=== PATIENT | female | born 1995 | race Caucasian/White ===

== ENCOUNTER 2016-11-04 16:28 | Emergency (ER) | payer OTHER ==
[2016-11-04] MEDS ORDERED: ACTIVATED CHARCOAL-SORBITOL 50 GM/240 ML BOTTLE PO STA (16:29)
[2016-11-04 16:34] VITALS: RESP 18
--- NOTE | 2016-11-04 16:37 | ED ---
General Adult HPI - General Chief complaint: Overdose Stated complaint: Overdose Time Seen by Provider: 11/04/16 16:30 Source: patient, EMS, RN notes reviewed Mode of arrival: EMS Limitations: no limitations - History of Present Illness Initial comments: This is a 20-year-old female presents to the emergency department somewhat lethargic. According to the patient she fell on the ice yesterday and hurt her hip so she was in pain so she took for her of her boyfriend's [place]. Patient does not know strength [place]. According to EMS emma called EMS because she was difficult to arouse. According to EMS when they arrived she was awake and alert a little bit groggy but was able to answer all questions accurately. Patient states she is not suicidal or homicidal she was just trying to the pain and does not have a good answer as to why she took for supposed to 1. Patient states she did no other drugs. Patient states she is a smoker. Patient denies any significant bronze currently. - Related Data Home Medications Medication Instructions Recorded Confirmed No Known Home Medications [No 11/04/16 11/04/16 Known Home Medications] Allergies Allergy/AdvReac Type Severity Reaction Status Date / Time No Known Allergies Allergy Verified 11/04/16 17:20 Review of Systems ROS Statement: Those systems with pertinent positive or pertinent negative responses have been documented in the HPI. ROS Other: All systems not noted in ROS Statement are negative. Past Medical History Additional Past Medical History / Comment(s): Gestational diabetes. History of Any Multi-Drug Resistant Organisms: None Reported Past Surgical History: No Surgical Hx Reported Past Anesthesia/Blood Transfusion Reactions: No Reported Reaction Past Psychological History: No Psychological Hx Reported Smoking Status: Current every day smoker Past Alcohol Use History: Occasional Past Drug Use History: None Reported Additional Drug Use History / Comment(s): pt refused smoking cessation info - Past Family History Mother Family Medical History: Asthma, COPD General Exam - General Exam Comments Initial Comments: GENERAL: Patient is well-developed and well-nourished. Patient is nontoxic and well- hydrated and is in no acute distress. Patient is a little lethargic but is able to answer all questions appropriately ENT: Neck is soft and supple. No significant lymphadenopathy is noted. Oropharynx is clear. Moist mucous membranes. Neck has full range of motion without eliciting any pain. EYES: The sclera were anicteric and conjunctiva were pink and moist. Extraocular movements were intact and pupils were equal round and reactive to light. Eyelids were unremarkable. PULMONARY: Unlabored respirations. Good breath sounds bilaterally. No audible rales rhonchi or wheezing was noted. CARDIOVASCULAR: There is a regular rate and rhythm without any murmurs gallops or rubs. ABDOMEN: Soft and nontender with normal bowel sounds. No palpable organomegaly was noted. There is no palpable pulsatile mass. SKIN: Skin is clear with no lesions or rashes and otherwise unremarkable. NEUROLOGIC: Patient is alert and oriented x3. Cranial nerves II through XII are grossly intact. Motor and sensory are also intact. Normal speech, volume and content. Symmetrical smile. MUSCULOSKELETAL: Normal extremities with adequate strength and full range of motion. LYMPHATICS: No significant lymphadenopathy is noted PSYCHIATRIC: Normal psychiatric evaluation. Limitations: no limitations Course Vital Signs 11/04/16 11/04/16 16:29 16:59 Temperature 98.3 F Pulse Rate 134 H 102 H Respiratory 18 18 Rate Blood Pressure 147/89 117/78 O2 Sat by Pulse 98 100 Oximetry Medical Decision Making - Medical Decision Making Patient is alert and oriented 3 and signs out AMA because she does not want to wait any longer. - Lab Data Lab Results 11/04/16 Range/Units 17:53 Urine Opiates Screen Detected H (NotDetected) Ur Oxycodone Screen Not Detected (NotDetected) Urine Methadone Screen Not Detected (NotDetected) Ur Propoxyphene Screen Not Detected (NotDetected) Ur Barbiturates Screen Not Detected (NotDetected) U Tricyclic Antidepress Not Detected (NotDetected) Ur Phencyclidine Scrn Not Detected (NotDetected) Ur Amphetamines Screen Not Detected (NotDetected) U Methamphetamines Scrn Not Detected (NotDetected) U Benzodiazepines Scrn Not Detected (NotDetected) Urine Cocaine Screen Detected H (NotDetected) U Marijuana (THC) Screen Not Detected (NotDetected) Disposition Clinical Impression: Opiate overdose Disposition: HOME SELF-CARE Condition: Good Instructions: Narcotic Abuse (ED) Time of Disposition: 18:44
[2016-11-04 18:50] VITALS: BP 115/82; PULSE 95; TEMP 97.5
== END 2016-11-04 18:55 | disposition home or self-care (01) ==
LOC: EC 16:28
DX: T40.2X1A Poisoning by other opioids, accidental (unintentional), initial encounter (principal); R53.83 Other fatigue; Z53.21 Procedure and treatment not carried out due to patient leaving prior to being seen by health care provider; F17.200 Nicotine dependence, unspecified, uncomplicated
CPT/HCPCS: 80306; 82075; 99284

== ENCOUNTER 2022-08-06 13:57 | Emergency (ER) | payer OTHER ==
[2022-08-06] MEDS ORDERED: IPRATROPIUM-ALBUTEROL 3 ML NEB INHALATION STA (14:15)
[2022-08-06] MEDS ORDERED: SODIUM CHLORIDE 0.9% 1,000 ML IV STA ×4 (14:15→15:37)
[2022-08-06 14:23] VITALS: TEMP 97.6
[2022-08-06 14:55] LABS: ALT 16 U/L (4-34); AST 26 U/L (14-36); African American GFR (CKD) >90 (>60 ml/min/1.73 sqM); Albumin 4.1 g/dL (3.5-5.0); Alkaline Phosphatase 58 U/L (38-126); Anion Gap 29 mmol/L; Blood Urea Nitrogen 14 mg/dL (7-17); Calcium 8.8 mg/dL (8.4-10.2); Carbon Dioxide 11 mmol/L (22-30); Chloride 102 mmol/L (98-107); Glucose 202 mg/dL (74-99); Non-African American GFR(CKD) 80 (>60 ml/min/1.73 sqM); Potassium 3.4 mmol/L (3.5-5.1); Sodium 142 mmol/L (137-145); Total Bilirubin 0.3 mg/dL (0.2-1.3); Total Protein 6.8 g/dL (6.3-8.2)
[2022-08-06 14:59] LABS: Partial Thromboplastin Time 30.6 sec (22.0-30.0); Prothrombin Time 10.8 sec (9.0-12.0)
[2022-08-06 15:01] LABS: HGB 14.7 gm/dL (11.4-16.0); Hypochromasia Marked; MCH 28.3 pg (25.0-35.0); MCHC 29.9 g/dL (31.0-37.0); MCV 94.5 fL (80.0-100.0); Mean Platelet Volume 10.3; Platelet Count 257 k/uL (150-450); RBC 5.18 m/uL (3.80-5.40); RDW 12.9 % (11.5-15.5)
[2022-08-06 15:25] LABS: Band Neutrophils % 2 %; Basophils # (M) 0.15 k/uL (0-0.2); Eosinophils # (M) 0.45 k/uL (0-0.7); Monocytes # (M) 0.15 k/uL (0-1.0); Neutrophils % (M) 11 %; Nucleated Red Blood Cells 0 /100 WBC (0-0); Total Cells Counted 200
[2022-08-06 15:34] LABS: Reactive Lymphocytes Present
--- NOTE | 2022-08-06 15:36 | ED ---
SOB HPI - General Chief Complaint: Shortness of Breath Stated Complaint: overdose Time Seen by Provider: 08/06/22 14:06 Source: patient, family Mode of arrival: wheelchair Limitations: no limitations - History of Present Illness Initial Comments: This 26-year-old female presents with unresponsiveness. She was apparently brought in by a friend who relates that she became unresponsive shortly after injecting heroin intravenously. Patient is unable to give any history herself as she is quite obtunded. Her friend apparently left and there is no 1 else to give any additional history. History is therefore very limited. - Related Data Home Medications Medication Instructions Recorded Confirmed Unable To Assess [Unable to Assess] 08/06/22 08/06/22 Allergies Allergy/AdvReac Type Severity Reaction Status Date / Time No Known Allergies Allergy Verified 11/04/16 17:20 Review of Systems ROS Statement: Those systems with pertinent positive or pertinent negative responses have been documented in the HPI. ROS Other: All systems not noted in ROS Statement are negative. Past Medical History Additional Past Medical History / Comment(s): Gestational diabetes. History of Any Multi-Drug Resistant Organisms: None Reported Past Surgical History: No Surgical Hx Reported Past Anesthesia/Blood Transfusion Reactions: No Reported Reaction Past Psychological History: No Psychological Hx Reported Past Alcohol Use History: Occasional Past Drug Use History: None Reported, Heroin - Past Family History Mother Family Medical History: Asthma, COPD General Exam - General Exam Comments Initial Comments: GENERAL: The patient is well nourished and well hydrated. VITAL SIGNS: Heart rate, blood pressure, respiratory rate reviewed as recorded in nurse's notes. EYES: Pupils are round and reactive. Extraocular movements are intact. No conjunctival / lid redness or swelling. ENT: No external evidence of injury, swelling, or ecchymosis. Airway is patent. Throat is clear. NECK: Nontender. No swelling or evidence of injury. No subcutaneous emphysema. Trachea is midline. No thyroid mass. HEART: Regular rate and rhythm. Good peripheral pulses. LUNGS/CHEST: Breath sounds clear and equal bilaterally. No rales, rhonchi, or wheezes. No ecchymosis, subcutaneous emphysema, or tenderness. ABDOMEN: Abdomen soft without tenderness. No palpable masses or organomegaly. No peritoneal signs. No abdominal wall swelling or ecchymosis. EXTREMITIES: No extremity tenderness. Normal muscle tone and function. No thoracolumbar tenderness. NEUROLOGIC: Sensation is grossly intact. No gross motor abnormalities. Patient is moving all extremities. She is quite obtunded and will not answer any questions. SKIN: No abrasions or ecchymosis is noted. No induration or masses noted. PSYCHIATRIC: Patient is obtunded currently.. Limitations: no limitations Course Vital Signs 08/06/22 08/06/22 08/06/22 14:20 16:06 16:11 Temperature 97.6 F Pulse Rate 91 65 76 Respiratory 16 18 18 Rate Blood Pressure 125/75 O2 Sat by Pulse 90 L Oximetry Medical Decision Making - Medical Decision Making The patient was seen and examined. All diagnostics are reviewed. The l aboratory does show a significantly elevated lactic acid. The white blood cell count also is elevated. The CO2 is decreased. The patient had a chest x-ray which did not show any acute abnormalities. The EKG shows a normal sinus rhythm at a rate of 71. There is no acute ST-T wave changes identified. She did receive Narcan immediately after arrival as she was barely breathing. She does get quite fidgety and is still moderately obtunded afterwards. She was watched for many hours in her mental status eventually significantly improved to her baseline. When further asked at this time what happened she states that she overdosed accidentally on heroin. She thinks that she got some bad heroin. She apparently does utilize heroin on a regular basis. Her sister is present and would like her to follow up with rehab. She is significantly dehydrated. The CT angiogram of the chest does not show any evidence of pulmonary embolism. The computed tomography scan of the brain is negative. She is feeling quite well on second recheck. She states that she is ambulatory without any difficulty. There is no difficulty in breathing. She denies any recent fevers or infections. She is not diabetic. She is offered admission but states that she would like to go home. She is counseled extensively regarding heroin abuse and need for rehabilitation. She understands and voices agreement. Return parameters are discussed. Close follow-up with primary care recommended. Oral fluids are encouraged. - Lab Data Result diagrams: 08/06/22 14:39 08/06/22 14:39 Lab Results 08/06/22 08/06/22 08/06/22 Range/Units 14:39 14:39 14:39 WBC 15.0 H (3.8-10.6) k/uL RBC 5.18 (3.80-5.40) m/uL Hgb 14.7 (11.4-16.0) gm/dL Hct 49.0 H (34.0-46.0) % MCV 94.5 (80.0-100.0) fL MCH 28.3 (25.0-35.0) pg MCHC 29.9 L (31.0-37.0) g/dL RDW 12.9 (11.5-15.5) % Plt Count 257 (150-450) k/uL MPV 10.3 Neutrophils % (Manual) 11 % Band Neuts % (Manual) 2 % Lymphocytes % (Manual) 84 % Monocytes % (Manual) 1 % Eosinophils % (Manual) 3 % Basophils % (Manual) 1 % Neutrophils # (Manual) 1.90 (1.3-7.7) k/uL Lymphocytes # (Manual) 12.60 H (1.0-4.8) k/uL Monocytes # (Manual) 0.15 (0-1.0) k/uL Eosinophils # (Manual) 0.45 (0-0.7) k/uL Basophils # (Manual) 0.15 (0-0.2) k/uL Nucleated RBCs 0 (0-0) /100 WBC Manual Slide Review Performed Reactive Lymphocytes Present Hypochromasia Marked PT 10.8 (9.0-12.0) sec INR 1.0 (<1.2) APTT 30.6 H (22.0-30.0) sec D-Dimer 1.21 H (<0.60) mg/L FEU Sodium 142 (137-145) mmol/L Potassium 3.4 L (3.5-5.1) mmol/L Chloride 102 (98-107) mmol/L Carbon Dioxide 11 L (22-30) mmol/L Anion Gap 29 mmol/L BUN 14 (7-17) mg/dL Creatinine 0.97 (0.52-1.04) mg/dL Est GFR (CKD-EPI)AfAm >90 (>60 ml/min/1.73 sqM) Est GFR (CKD-EPI)NonAf 80 (>60 ml/min/1.73 sqM) Glucose 202 H (74-99) mg/dL Lactic Ac Sepsis Rflx Plasma Lactic Acid Dusty (0.7-2.0) mmol/L Calcium 8.8 (8.4-10.2) mg/dL Total Bilirubin 0.3 (0.2-1.3) mg/dL AST 26 (14-36) U/L ALT 16 (4-34) U/L Alkaline Phosphatase 58 (38-126) U/L Troponin I (0.000-0.034) ng/mL Total Protein 6.8 (6.3-8.2) g/dL Albumin 4.1 (3.5-5.0) g/dL HCG, Qual Coronavirus (PCR) (Not Detectd) Influenza Type A RNA (Not Detectd) Influenza Type B (PCR) (Not Detectd) 08/06/22 08/06/22 08/06/22 Range/Units 14:39 14:39 14:39 WBC (3.8-10.6) k/uL RBC (3.80-5.40) m/uL Hgb (11.4-16.0) gm/dL Hct (34.0-46.0) % MCV (80.0-100.0) fL MCH (25.0-35.0) pg MCHC (31.0-37.0) g/dL RDW (11.5-15.5) % Plt Count (150-450) k/uL MPV Neutrophils % (Manual) % Band Neuts % (Manual) % Lymphocytes % (Manual) % Monocytes % (Manual) % Eosinophils % (Manual) % Basophils % (Manual) % Neutrophils # (Manual) (1.3-7.7) k/uL Lymphocytes # (Manual) (1.0-4.8) k/uL Monocytes # (Manual) (0-1.0) k/uL Eosinophils # (Manual) (0-0.7) k/uL Basophils # (Manual) (0-0.2) k/uL Nucleated RBCs (0-0) /100 WBC Manual Slide Review Reactive Lymphocytes Hypochromasia PT (9.0-12.0) sec INR (<1.2) APTT (22.0-30.0) sec D-Dimer (<0.60) mg/L FEU Sodium (137-145) mmol/L Potassium (3.5-5.1) mmol/L Chloride (98-107) mmol/L Carbon Dioxide (22-30) mmol/L Anion Gap mmol/L BUN (7-17) mg/dL Creatinine (0.52-1.04) mg/dL Est GFR (CKD-EPI)AfAm (>60 ml/min/1.73 sqM) Est GFR (CKD-EPI)NonAf (>60 ml/min/1.73 sqM) Glucose (74-99) mg/dL Lactic Ac Sepsis Rflx Plasma Lactic Acid Dusty 20.2 H* (0.7-2.0) mmol/L Calcium (8.4-10.2) mg/dL Total Bilirubin (0.2-1.3) mg/dL AST (14-36) U/L ALT (4-34) U/L Alkaline Phosphatase (38-126) U/L Troponin I <0.012 (0.000-0.034) ng/mL Total Protein (6.3-8.2) g/dL Albumin (3.5-5.0) g/dL HCG, Qual Not Detected Coronavirus (PCR) (Not Detectd) Influenza Type A RNA (Not Detectd) Influenza Type B (PCR) (Not Detectd) 08/06/22 08/06/22 08/06/22 Range/Units 14:45 15:11 19:24 WBC (3.8-10.6) k/uL RBC (3.80-5.40) m/uL Hgb (11.4-16.0) gm/dL Hct (34.0-46.0) % MCV (80.0-100.0) fL MCH (25.0-35.0) pg MCHC (31.0-37.0) g/dL RDW (11.5-15.5) % Plt Count (150-450) k/uL MPV Neutrophils % (Manual) % Band Neuts % (Manual) % Lymphocytes % (Manual) % Monocytes % (Manual) % Eosinophils % (Manual) % Basophils % (Manual) % Neutrophils # (Manual) (1.3-7.7) k/uL Lymphocytes # (Manual) (1.0-4.8) k/uL Monocytes # (Manual) (0-1.0) k/uL Eosinophils # (Manual) (0-0.7) k/uL Basophils # (Manual) (0-0.2) k/uL Nucleated RBCs (0-0) /100 WBC Manual Slide Review Reactive Lymphocytes Hypochromasia PT (9.0-12.0) sec INR (<1.2) APTT (22.0-30.0) sec D-Dimer (<0.60) mg/L FEU Sodium (137-145) mmol/L Potassium (3.5-5.1) mmol/L Chloride (98-107) mmol/L Carbon Dioxide (22-30) mmol/L Anion Gap mmol/L BUN (7-17) mg/dL Creatinine (0.52-1.04) mg/dL Est GFR (CKD-EPI)AfAm (>60 ml/min/1.73 sqM) Est GFR (CKD-EPI)NonAf (>60 ml/min/1.73 sqM) Glucose (74-99) mg/dL Lactic Ac Sepsis Rflx Y Plasma Lactic Acid Dusty (0.7-2.0) mmol/L Calcium (8.4-10.2) mg/dL Total Bilirubin (0.2-1.3) mg/dL AST (14-36) U/L ALT (4-34) U/L Alkaline Phosphatase (38-126) U/L Troponin I (0.000-0.034) ng/mL Total Protein (6.3-8.2) g/dL Albumin (3.5-5.0) g/dL HCG, Qual Coronavirus (PCR) Not Detected (Not Detectd) Influenza Type A RNA Not Detected (Not Detectd) Influenza Type B (PCR) Not Detected (Not Detectd) 08/06/22 Range/Units 19:31 WBC (3.8-10.6) k/uL RBC (3.80-5.40) m/uL Hgb (11.4-16.0) gm/dL Hct (34.0-46.0) % MCV (80.0-100.0) fL MCH (25.0-35.0) pg MCHC (31.0-37.0) g/dL RDW (11.5-15.5) % Plt Count (150-450) k/uL MPV Neutrophils % (Manual) % Band Neuts % (Manual) % Lymphocytes % (Manual) % Monocytes % (Manual) % Eosinophils % (Manual) % Basophils % (Manual) % Neutrophils # (Manual) (1.3-7.7) k/uL Lymphocytes # (Manual) (1.0-4.8) k/uL Monocytes # (Manual) (0-1.0) k/uL Eosinophils # (Manual) (0-0.7) k/uL Basophils # (Manual) (0-0.2) k/uL Nucleated RBCs (0-0) /100 WBC Manual Slide Review Reactive Lymphocytes Hypochromasia PT (9.0-12.0) sec INR (<1.2) APTT (22.0-30.0) sec D-Dimer (<0.60) mg/L FEU Sodium (137-145) mmol/L Potassium (3.5-5.1) mmol/L Chloride (98-107) mmol/L Carbon Dioxide (22-30) mmol/L Anion Gap mmol/L BUN (7-17) mg/dL Creatinine (0.52-1.04) mg/dL Est GFR (CKD-EPI)AfAm (>60 ml/min/1.73 sqM) Est GFR (CKD-EPI)NonAf (>60 ml/min/1.73 sqM) Glucose (74-99) mg/dL Lactic Ac Sepsis Rflx Plasma Lactic Acid Dusty 1.7 (0.7-2.0) mmol/L Calcium (8.4-10.2) mg/dL Total Bilirubin (0.2-1.3) mg/dL AST (14-36) U/L ALT (4-34) U/L Alkaline Phosphatase (38-126) U/L Troponin I (0.000-0.034) ng/mL Total Protein (6.3-8.2) g/dL Albumin (3.5-5.0) g/dL HCG, Qual Coronavirus (PCR) (Not Detectd) Influenza Type A RNA (Not Detectd) Influenza Type B (PCR) (Not Detectd) Disposition Clinical Impression: Lactic acidosis, Heroin overdose, Mental status change resolved, Dehydration Disposition: HOME SELF-CARE Condition: Good Instructions (If sedation given, give patient instructions): Narcotic Use Disorder (ED) Additional Instructions: Please follow-up with a drug rehabilitation program as soon as possible. Is patient prescribed a controlled substance at d/c from ED?: No Referrals: None,Stated [Primary Care Provider] - 1-2 days Time of Disposition: 22:34
--- NOTE | 2022-08-06 15:55 | XR ---
EXAMINATION TYPE: XR chest 1V portable DATE OF EXAM: 08/06/2022 Comparison: None Clinical History: 26 year-old female shortness of breath, overdose Findings: Heart normal size. Leftward patient rotation. Aorta and pulmonary vasculature within normal limits. I nterstitial prominence. No pleural effusion. Bilateral nipple shadows. Impression: Interstitial prominence more than would be expected for patient's age. Given the provided history, cl inical monitoring to exclude early interstitial edema or aspiration is recommended. No donn airspace disease at this time.
[2022-08-06 16:11] VITALS: RESP 18
--- NOTE | 2022-08-06 22:14 | CT ---
EXAMINATION TYPE: CT brain wo con DATE OF EXAM: 08/06/2022 COMPARISON: None HISTORY: Altered mental status CT DLP: mGycm Automated exposure control for dose reduction was used. Ventricles of normal size. There is no mass effect or midline shift. No sign of intracranial hemorrha ge. Calvarium is intact. Skull base is intact. There is normal aeration of the mastoid sinuses.
--- NOTE | 2022-08-06 22:18 | CT ---
EXAMINATION TYPE: CT angio chest DATE OF EXAM: 08/06/2022 COMPARISON: None HISTORY: Chest pain CT DLP: mGycm Automated exposure control for dose reduction was used. Images obtained from the thoracic inlet to the diaphragm with the IV contrast Three-D postprocessed images. The lungs are clear of infiltrate. No pleural effusion. There is a 1 cm noncalcified subpleural nodul e in the lateral left lower lobe. Heart size is normal. No pericardial effusion. There is no mediastinal adenopathy. There are no hilar masses. There is normal contrast opacification of the pulmonary arteries. No filling defect. The thoracic spine is intact. No compression fracture. IMPRESSION: No evidence of pulmonary embolism. Noncalcified left lower lobe nodule.
[2022-08-06 23:06] VITALS: BP 107/61; PULSE 76
[2022-08-06 23:12] LABS: Appearance,Urine Cloudy (Clear); Bacteria,Urine Rare /hpf; Bilirubin,Urine Negative (Negative); Blood,Urine Negative (Negative); Color,Urine Yellow; Glucose,Urine (UA) 2+ (Negative); Ketones,Urine Negative (Negative); Leukocyte Esterase,Urine Moderate (Negative); Mucus,Urine Rare /hpf; Nitrite,Urine Negative (Negative); PH, Urine 5.5 (5.0-8.0); Protein,Urine 1+ (Negative); RBC,Urine 23 /hpf (0-5); Specific Gravity,Urine 1.038 (1.001-1.035); Squamous Epithelial Cell,Urine 31 /hpf (0-4); Urobilinogen,Urine <2.0 mg/dL (<2.0); WBC,Urine 34 /hpf (0-5)
== END 2022-08-06 23:07 | disposition home or self-care (01) ==
LOC: EC 13:57
DX: T40.1X1A Poisoning by heroin, accidental (unintentional), initial encounter (principal); Z20.822 Contact with and (suspected) exposure to COVID-19
CPT/HCPCS: 36415; 94640; 93005; 85379; 80053; 83605; 84484; 85025; 85610; 85730; 81001; 81025; 84703; 87040; 87086; 87502; 87635; 71045; 70450; 71275; 99285; 96360; 96361; Q9967

== ENCOUNTER 2024-12-13 21:58 | Inpatient (IN) | payer OTHER ==
--- NOTE | 2024-12-14 00:08 | US ---
EXAM: US Second or Third Trimester , Transabdominal CLINICAL HISTORY: US Reason: Vaginal bleeding TECHNIQUE: Real-time transabdominal obstetrical ultrasound of the maternal pelvis and a second or third trimester with image documentation. COMPARISON: No relevant prior studies available. FINDINGS: Fetus: No cardiac activity is present, indicating demise. Heart rate: None. Presentation: Breech. Placenta: Unremarkable. No abruption. Amniotic fluid: Amniotic fluid index 9.3 cm. Anatomy: Intracranial/face anatomy not seen. Spinal anatomy not seen. Abdominal anatomy not seen. Extremities not seen. Four-chamber heart not seen. Umbilical cord not seen. BIOMETRICS Gestational age: The estimated gestational age by ultrasound is 16 weeks 0 days. DONY: Not applicable EFW: Estimated weight 149 g. BPD: Biparietal diameter 2.86 cm consistent with 15 weeks 2 days. HC: Head circumference 11.47 cm consistent with 15 weeks 5 days. AC: Abdominal circumference 10.59 cm consistent with 16 weeks 4 days. FL: Femur length 2.02 cm consistent with 16 weeks 1 day. MATERNAL: Uterus: Unremarkable. No myometrial mass. Cervix: Unremarkable as visualized. Closed. Free fluid: No free fluid. IMPRESSION: 1. No cardiac activity is present, indicating demise. 2. The estimated gestational age by ultrasound is 16 weeks 0 days. <MYCVCSECTION> Communications: 12/14/24 01:03 Call Doctor Regarding Above results, called Dr. JOHNSON on 12/14 01:03 (-05:00)
[2024-12-14 01:02] LABS: Basophils % (A) 0 %; Eosinophils # (A) 0.4 k/uL (0-0.7); Eosinophils % (A) 6 %; HCT 37.2 % (34.0-46.0); HGB 12.4 gm/dL (11.4-16.0); Lymphocytes # (A) 1.5 k/uL (1.0-4.8); Lymphocytes % (A) 22 %; MCH 29.8 pg (25.0-35.0); MCHC 33.4 g/dL (31.0-37.0); MCV 89.1 fL (80.0-100.0); Mean Platelet Volume 8.5; Monocytes # (A) 0.2 k/uL (0-1.0); Monocytes % (A) 3 %; Neutrophils # (A) 4.6 k/uL (1.3-7.7); Neutrophils % (A) 67 %; Platelet Count 236 k/uL (150-450); RBC 4.18 m/uL (3.80-5.40); RDW 12.6 % (11.5-15.5); WBC 6.9 k/uL (3.8-10.6)
[2024-12-14] MEDS: LACTATED RINGERS 1,000 ML IV SCH (01:47)
[2024-12-14] MEDS ORDERED: METOCLOPRAMIDE 5 MG/ML 2 ML VIAL IVP PRN (02:54)
[2024-12-14] MEDS: NALBUPHINE 10 MG/ML (10 ML MDV) IV PRN (02:55)
[2024-12-14] MEDS: ACETAMINOPHEN TAB 325 MG TAB PO ONE (06:05)
[2024-12-14] MEDS: DIPHENOX-ATROP 2.5-0.025 MG 1 EACH TAB PO PRN (06:06)
[2024-12-14] MEDS: CARBOPROST TROMETHAMINE 250 MCG/ML 1 ML AMP IM SCH (07:22)
--- NOTE | 2024-12-14 08:41 | P.HPOB ---
History of Present Illness H&P Date: 12/14/24 Chief Complaint: demise 28-year-old presents at 16 weeks by ultrasound today 20 weeks by gestational age complaining of vaginal bleeding for 1 week. The bleeding has been on and off spotting. Patient has been [facility] [place] [facility]. She said that yesterday the doctor at the [facility] dopplered and did get heart tones. This is not consistent with the ultrasound findings since it looks like the baby passed about a month ago. Patient has had 2 sections 4 and 10 years ago. She says a sections were for her heart-shaped uterus. I discu ssed delivery with Cornelia. We discussed using Dilapan and medications to induce labor. Patient understands this is the safest for her health. Hysterotomy is not indicated at this time. Patient cervix is closed and thick, And she is not yariel. Placenta on ultrasound was found to be posterior and fundal, this was not on the ultrasound report but I did speak to the radiologist. Review of Systems All systems: negative Constitutional: Denies chills, Denies fever Eyes: denies blurred vision, denies pain Ears, nose, mouth and throat: Denies headache, Denies sore throat Cardiovascular: Denies chest pain, Denies shortness of breath Respiratory: Denies cough Gastrointestinal: Denies abdominal pain, Denies diarrhea, Denies nausea, Denies vomiting Genitourinary: Denies dysuria, Denies hematuria Musculoskeletal: Denies myalgias Integumentary: Denies pruritus, Denies rash Neurological: Denies numbness, Denies weakness Psychiatric: Denies anxiety, Denies depression Endocrine: Denies fatigue, Denies weight change Past Medical History History of Any Multi-Drug Resistant Organisms: None Reported Past Surgical History: Section Past Anesthesia/Blood Transfusion Reactions: No Reported Reaction Past Psychological History: No Psychological Hx Reported Smoking Status: Vaper Past Alcohol Use History: None Reported Past Drug Use History: None Reported, Heroin Additional Drug Use History / Comment(s): pt refused smoking cessation info - Past Family History Mother Family Medical History: Asthma, COPD Medications and Allergies Home Medications Medication Instructions Recorded Confirmed Type Vit No.179/Iron/Folic 12/13/24 History [ Tablet] Allergies Allergy/AdvReac Type Severity Reaction Status Date / Time No Known Allergies Allergy Verified 12/13/24 22:15 Exam Osteopathic Statement: *. No significant issues noted on an osteopathic structural exam other than those noted in the History and Physical/Consult. Intake and Output 12/13/24 12/14/24 12/14/24 22:59 06:59 14:59 Other: # Voids 2 Weight 51.71 kg 51.71 kg Heart: Regular rate and rhythm Lungs: Clear to auscultation bilaterally Abdomen: Soft, nontender Extremities: Negative Homans sign Results Result Diagrams: 12/14/24 00:51 Assessment and Plan (1) demise before 20 weeks with retention of fetus Current Visit: Yes Status: Acute Code(s): O02.1 - MISSED SNOMED Code(s): 437971899 Plan: 1. Dilapan placement and Hemabate in a few hours to induce labor. 2. Nubain or Stadol for pain management
--- NOTE | 2024-12-14 08:43 | P.PCN ---
Date of Procedure: 12/14/24 Preoperative Diagnosis: 1. 16 week demise Postoperative Diagnosis: 1. 16 week demise Procedure(s) Performed: dilapan placement Surgeon: Kathy Cervantes Pathology: none sent Condition: stable Disposition: floor Description of Procedure: Informed consent was obtained from patient and all risk benefits and alternatives were discussed with her. Sterile speculum was placed in the vagina. Cervix was cleaned off with Betadine. The anterior lip the cervix was grasped with an Allis clamp. 3 Dilapan's were placed into the cervix and sterile fashion. Patient tolerated the procedure well with minimal discomfort.
[2024-12-14 09:07] LABS: Urine Alcohol Negative (Negative)
[2024-12-14 09:08] LABS: Urine Barbiturate Negative (Negative); Urine Cocaine Negative (Negative); Urine Methadone Negative (Negative); Urine Opiates Negative (Negative); Urine Phencyclidine Negative (Negative)
[2024-12-14] MEDS: BUTORPHANOL 1 MG/ML 1 ML VIAL IV PRN (10:37)
[2024-12-14] MEDS: ACETAMINOPHEN TAB 325 MG TAB PO PRN (13:03)
[2024-12-14 14:24] LABS: INR 0.9 (<1.2); Partial Thromboplastin Time 22.2 sec (22.0-30.0); Prothrombin Time 10.4 sec (10.0-12.5)
[2024-12-14] MEDS ORDERED: ROPIVACAINE 5 MG/ML 30 ML VIAL ONE (14:41)
[2024-12-14] MEDS ORDERED: SODIUM CHLORIDE 0.9% 250 ML BAG ONE (14:41)
[2024-12-14] MEDS ORDERED: fentaNYL (PF) 50 MCG/ML 5 ML AMP ONE (14:41)
[2024-12-14] MEDS: ONDANSETRON 4 MG/2 ML VIAL IVP PRN (15:36)
[2024-12-14 21:10] VITALS: RESP 18
[2024-12-14] MEDS: IBUPROFEN 600 MG TAB PO PRN (23:32)
[2024-12-15 07:19] LABS: Basophils % (A) 0 %; Eosinophils # (A) 0.4 k/uL (0-0.7); Eosinophils % (A) 5 %; HCT 30.5 % (34.0-46.0); HGB 10.1 gm/dL (11.4-16.0); Lymphocytes % (A) 24 %; MCH 30.1 pg (25.0-35.0); MCHC 33.2 g/dL (31.0-37.0); MCV 90.7 fL (80.0-100.0); Mean Platelet Volume 8.3; Monocytes # (A) 0.5 k/uL (0-1.0); Monocytes % (A) 6 %; Neutrophils # (A) 5.3 k/uL (1.3-7.7); Neutrophils % (A) 64 %; Platelet Count 207 k/uL (150-450); RBC 3.36 m/uL (3.80-5.40); RDW 12.5 % (11.5-15.5); WBC 8.3 k/uL (3.8-10.6)
--- NOTE | 2024-12-15 07:55 | P.PROBDLV ---
Vaginal Delivery Note - . Vaginal Delivery Note: Date of Service 12/14/2024 28 year old presented at 20 weeks by early US, 16 weeks by US at admission, with a demise and some vaginal bleeding. Induction of labor was started by placing 3 dilapan in the cervix. About 6 hours later at 730 am, hemabate was given. She had a few doses of this and did have cramping requiring nubain and then stadol. She eventually did get an epidural and was more comfortable. She delivered the baby in the bag of water at 1625. 0,0. Cord was clamped and cut and pt did want to hold who was then placed in a blanket and given to her. The placenta spontaneously delivered at 1806. Minimal bleeding noted and no lacerations. Mother is in stable condition.
--- NOTE | 2024-12-15 07:57 | P.DS ---
Providers Date of admission: 12/13/24 22:56 Expected date of discharge: 12/15/24 Attending physician: Kathy Cervantes Primary care physician: Kathy Cervantes - Discharge Diagnosis(es) (1) demise before 20 weeks with retention of fetus Current Visit: Yes Status: Resolved (2) Status post vaginal delivery Current Visit: Yes Status: Acute Hospital Course: She is a G3, P2 who presented with a demise measuring 16 weeks but 20 weeks gestation. She underwent induction with Dilapan and Hemabate. Patient had a vaginal delivery of the baby and the placenta. course has been uneventful. She denies nausea, vomiting, chest pain, shortness of breath or calf pain. Patient will be discharged home day #1 in stable condition to follow-up with me in 6 weeks. Plan - Discharge Summary New Discharge Prescriptions: New RX: Ibuprofen [Motrin] 600 mg PO Q6HR PRN #30 tab PRN Reason: Mild Pain Or Fever >= 100.5 No Action Vit No.179/Iron/Folic [ Tablet] Discharge Medication List Vit No.179/Iron/Folic [ Tablet] 12/13/24 [History] RX: Ibuprofen [Motrin] 600 mg PO Q6HR PRN #30 tab 12/15/24 [Rx] Follow up Appointment(s)/Referral(s): Kathy Cervantes DO [Primary Care Provider] - 6 Weeks Discharge Disposition: HOME SELF-CARE
[2024-12-15 08:25] VITALS: TEMP 98
[2024-12-15 11:26] VITALS: BP 88/49; PULSE 77
== END 2024-12-15 13:00 | disposition home or self-care (01) | DRG 564 ==
LOC: FBPOP 21:58 → 4FBP 22:56
PROVIDERS: ADMIT Obstetrics & Gynecology; ATTEND Obstetrics & Gynecology
PROC: 3E0DXGC Introduction of Other Therapeutic Substance into Mouth and Pharynx, External Approach (ICD-10-PCS; principal; 2024-12-13)
PROC: 0U7C7ZZ Dilation of Cervix, Via Natural or Artificial Opening (ICD-10-PCS; 2024-12-14)
PROC: 10E0XZZ Delivery of Products of Conception, External Approach (ICD-10-PCS; 2024-12-14)
DX: O02.1 Missed abortion (principal); O34.219 Maternal care for unspecified type scar from previous cesarean delivery; O99.332 Smoking (tobacco) complicating pregnancy, second trimester; F17.290 Nicotine dependence, other tobacco product, uncomplicated; Z3A.16 16 weeks gestation of pregnancy
CPT/HCPCS: 59200; 76805; 80306; 85025; 85610; 85730; 86850; 86900; 86901; 99213